=== PATIENT | male | born 1985 | race Caucasian/White ===

== ENCOUNTER 2020-04-11 13:58 | Emergency (ER) | payer BC ==
[~2020-04-11] VITALS: Ht 177.8 cm; Wt 81.6 kg
--- NOTE | 2020-04-11 14:51 | NUR ---
PT IS IN ROOM #1B. DR LARA EVALUATED THE PT.
[2020-04-11 15:08] LABS: BASOPHILS % (AUTO) 0.2 % (0.0-2.0); EOSINOPHILS # (AUTO) 0.1 K/uL (0.0-0.7); EOSINOPHILS % (AUTO) 0.4 % (0.0-7.0); HEMOGLOBIN 13.2 g/dL (12.5-16.3); LYMPHOCYTES # (AUTO) 2.2 K/uL (20.0-40.0); LYMPHOCYTES % (AUTO) 12.7 % (20.5-51.5); MEAN CORPUSCULAR HGB CONC 33 g/dL (32.5-36.3); MONOCYTES # (AUTO) 0.4 K/uL (2.0-10.0); MONOCYTES % (AUTO) 2.3 % (0.0-11.0); NEUTROPHILS # (AUTO) 14.3 K/uL (1.8-8.9); NEUTROPHILS % (AUTO) 84.4 % (38.5-71.5); PLATELET COUNT (AUTO) 229 K/uL (152-348); RED BLOOD CELL COUNT(AUTO) 4.25 MIL/uL (4.06-5.63); WHITE BLOOD COUNT (AUTO) 16.9 K/uL (3.6-10.2)
[2020-04-11 15:14] LABS: BILIRUBIN,DIRECT 0.1 mg/dL (0.0-0.2); BILIRUBIN,TOTAL 0.2 mg/dL (0.2-1.0); CREATININE 0.9 mg/dL (0.6-1.3); POTASSIUM 3.9 mmol/L (3.5-5.1); TOTAL PROTEIN, SERUM 7.9 g/dL (6.4-8.2)
[2020-04-11 15:26] LABS: LYMPHOCYTES % (MANUAL) 6 % (20-40); MONOCYTES % (MANUAL) 3 % (2-10); NEUTROPHILS % (MANUAL) 91 % (42-75)
--- NOTE | 2020-04-11 16:05 | NUR ---
PT WAS D/C'd TO HOME AFTER DR LARA RE-EVALUATION. D/C INSTRUCTIONS GIVEN TO THE PT BY DR LARA.
[2020-04-11 16:10] VITALS: BP 132/73
== END 2020-04-11 16:11 | disposition home or self-care (01) ==
LOC: ER 13:58
DX: R56.9 Unspecified convulsions (principal); G93.0 Cerebral cysts; D72.829 Elevated white blood cell count, unspecified; F10.21 Alcohol dependence, in remission; Z88.1 Allergy status to other antibiotic agents
CPT/HCPCS: 36415; 70030-TC; 70450; 85025; 85730; 93005; A4663